=== PATIENT | female | born 1950 | race Caucasian/White ===

== ENCOUNTER 2018-08-10 21:08 | Emergency (ER) | payer MEDICARE, OTHER ==
[~2018-08-10] VITALS: Ht 160 cm; Wt 84.6 kg
[~2018-08-10 21:08] MED LIST: LEVO150T7 PO; OMEP20CA9 PO; PROG100C15 PO; VOLTAR
[2018-08-10 21:46] VITALS: Ht 160 cm; Wt 84.6 kg
--- NOTE | 2018-08-10 22:53 | ERD ---
ER Documentation Chief Complaint Chief Complaint C/O LT LOWER LEG PAIN, SWELLING AND REDNESS X5 DAYS, HX OF DVT HPI 67-year-old female presenting with complaints of left lower calf pain for the past 5 days. She does have a remote history of DVT a long time ago in her upper left leg after she had a surgery. However she denies any recent surgery or immobilization. She recently did have physical therapy done about 1 week ago to her left lower extremity due to a foot drop that she sustained on the previous hospitalization. She states that she thinks that the pain is secondary to that. However she noticed some swelling and she called the telephone nurse that advised she come to the ER for evaluation. She has also noticed some redness around the lower leg with some warmth to touch. No fevers or chills. No new numbness or weakness in the leg. She complains of mild to moderate pain, worse with touching the area with no alleviating factors. ROS All systems reviewed and are negative except as per history of present illness. Medications Home Meds Reported Medications Progesterone,Micronized* (Prometrium*) 100 Mg Capsule, 100 MG PO DAILY 10/08/10 Omeprazole* (Prilosec*) 20 Mg Capsule.dr, 20 MG PO DAILY 10/08/10 [Voltar] No Conflict Check 10/08/10 Levothyroxine Sodium* (Levothyroxine Sodium*) 150 Mcg Tablet, 150 MCG PO DAILY 10/08/10 Allergies Allergies: Coded Allergies: Sulfa (Sulfonamide Antibiotics) (Verified Allergy, Severe, 10/08/10) PMhx/Soc History of Surgery: Yes (vascular surgery L leg removal of benign growth, tonsillectomy) Anesthesia Reaction: No Hx Neurological Disorder: No Hx Respiratory Disorders: No Hx Cardiac Disorders: No Hx Psychiatric Problems: Yes (depression) Hx Miscellaneous Medical Probl: Yes (hypothyroidism, gerd) Hx Alcohol Use: No Hx Substance Use: No Hx Tobacco Use: Yes Smoking Status: Current some day smoker FmHx Family History: No diabetes Physical Exam Vitals Vital Signs Date Temp Pulse Resp B/P (MAP) Pulse Ox O2 O2 Flow FiO2 Time Delivery Rate 08/10/18 99.7 92 18 145/87 97 21:46 (106) Physical Exam Const: No acute distress Head: Atraumatic Resp: Clear to auscultation bilaterally Cardio: Regular rate and rhythm, no murmurs. 2+ DP and PT pulses bilaterally. 2+ radial pulses bilaterally. Skin: No petechiae or rashes Ext: Mild bilateral lower extremity edema, left slightly greater than right. Faint erythema with mild warmth to palpation of the left lower leg, mostly on the posterior aspect above the ankle joint. There is no joint swelling. No pain with range of motion of the ankle joint. The rest of the extremities look normal. There is tenderness to palpation of the left lower calf muscle. Neur: Awake and alert Psych: Normal Mood and Affect Results 24 hrs Current Medications Medications Dose Sig/Mahi Start Time Status Last (Trade) Ordered Route PRN Stop Time Admin Dose Reason Admin Oxycodone/ 1 tab ONCE ONCE 08/10/18 DC 08/10/18 Acetaminophen PO 23:00 08/10/18 23:03 (Percocet 23:01 (5/ 325)) Procedures/MDM Patient is presenting with left lower extremity pain. She is neurovascularly intact on exam. Ultrasound of the left lower extremity was done and did not show any evidence of DVT. There is no evidence of ischemic limb. Given the erythema, he did recommend treatment for cellulitis. Prescription for Keflex given. Follow-up with PCP recommended within the next 2 days. Return precautions discussed. All questions answered. Patient's blood pressure was elevated (>120/80) but appears stable without evidence of hypertension emergency or urgency. The patient was counseled about the risks of hypertension and urged to pursue outpatient monitoring and therapy within a week with their primary care physician. Departure Diagnosis: Primary Impression: Pain of left leg Condition: Stable EKSOLANGE DEGROOT MD Aug 10, 2018 22:53
[2018-08-10] MEDS ORDERED: OXYCODONE/ACETAMINOPHEN (5/325) TAB PO ONE (23:00)
[2018-08-10] MEDS ORDERED: CEPH-443 PO (23:47)
[2018-08-10 23:56] VITALS: BP 142/86; PULSE 77; RESP 20
== END 2018-08-10 23:57 | disposition home or self-care (01) ==
LOC: E/R 21:08
DX: M79.605 Pain in left leg (principal); E03.9 Hypothyroidism, unspecified; F17.210 Nicotine dependence, cigarettes, uncomplicated
CPT/HCPCS: 93971